=== PATIENT | female | born 1980 | race Caucasian/White ===

== ENCOUNTER 2022-07-27 10:05 | Outpatient (CLI) | payer OTHER, SELFPAY ==
--- NOTE | ~2022-07-27 | XR_ITS ---
XR knee RT min 4V DATE: 07/27/2022 11:08 INDICATION: Knee pain TECHNIQUE: 4 views COMPARISON: None FINDINGS: There is mild periarticular spurring of the patella consistent with mild patellofemoral ost eoarthritis. Knee joint spaces are well preserved. No fracture or dislocation or joint effusion, radiopaque intra-articular loose body or chondrocalcino sis. No periosteal reaction or bone destruction. IMPRESSION: Mild patellofemoral osteoarthritis Reviewed, dictated and finalized at location A.
--- NOTE | ~2022-07-27 | XR_ITS ---
XR knee LT min 4V DATE: 07/27/2022 11:08 INDICATION: Knee pain TECHNIQUE: 4 views COMPARISON: None FINDINGS: No fracture or dislocation or joint effusion. Slight periarticular spurring of the patella. Joint spaces are well preserved. No radiopaque intra-articular loose body or chondrocalcinosis. No p eriosteal reaction or bone destruction. IMPRESSION: Slight patellofemoral osteoarthritis Reviewed, dictated and finalized at location A.
[2022-07-27 10:35] LABS: Basophils Absolute Auto 0.04 K/mm3 (0.00-0.10); Basophils Percent Auto 0.8 % (0.0-1.0); Eosinophils Absolute Auto 0.12 K/mm3 (0.02-0.50); Eosinophils Percent Auto 2.5 % (1.0-6.0); Hematocrit 30.4 % (35.0-49.0); Hemoglobin 9.4 g/dL (12.0-15.0); Immature Granulocyte Absolute 0.01 K/mm3 (0.00-0.00); Immature Granulocyte Percent A 0.2 % (0.0-0.0); Lymphocytes Absolute Auto 0.81 K/mm3 (1.10-4.50); Lymphocytes Percent Auto 16.7 % (18.0-42.0); Mean Corpuscular HGB Conc 30.9 g/dL (32.0-36.0); Mean Corpuscular Hemoglobin 26.5 pg (27.0-31.0); Mean Corpuscular Volume 85.6 fL (78.0-102.0); Mean Platelet Volume 11.4 fl (9.2-11.8); Monocytes Percent Auto 6.2 % (2.0-11.0); Neutrophils Absolute Auto 3.6 K/mm3 (1.7-7.2); Neutrophils Percent Auto 73.6 % (50.0-70.0); Platelet Count Result 202 K/mm3 (150-420); Red Blood Count 3.55 M/mm3 (4.20-5.40); Red Cell Distribution Width 16.3 % (11.6-14.4); White Blood Count 4.9 K/mm3 (4.8-10.8)
[2022-07-27 10:38] LABS: Appearance Urine Clear (Clear); Bilirubin Urine Negative (Negative); Blood Urine 1+ (Negative); Color Urine Yellow (Yellow); Glucose Urine UA Negative (Negative); Ketones Urine Negative (Negative); Leukocyte Esterase Ur 3+ (Negative); Nitrate Urine Negative (Negative); Protein Urine 1+ (Negative); Urobilinogen Urine 0.2 mg/dL (0.2-1.0)
[2022-07-27 10:46] LABS: Add Urine Microscopic? YES; Bacteria Urine 1+ /hpf; Squamous Epithelial Cell Urine Few /hpf (Few); WBC Urine >75 /hpf (0-3)
[2022-07-27 10:47] LABS: Creatinine Urine 110.81 mg/dL (40-278); MALB Creatinine Ratio 41.7 mg/g (0-30); Microalbumin Urine Random 46.3 mg/L
[2022-07-27 11:22] LABS: Alanine Aminotransferase 19 U/L (14-59); Albumin Level 3.6 g/dL (3.4-5.0); Alkaline Phosphatase 81 U/L (46-116); Anion Gap 9 mmol/L (8-16); Aspartate Amino Transferase 19 U/L (15-37); Bilirubin,Total 0.4 mg/dL (0.00-1.00); Blood Urea Nitrogen 15 mg/dL (7-18); Calcium 8.8 mg/dL (8.5-10.1); Carbon Dioxide 24 mmol/L (21-32); Chloride 105 mmol/L (98-108); Estimated Glomerular Filt Rate > 60; Glucose 92 mg/dL (70-99); Osmolality Calculated 286 mOsm/kg (285-295); Potassium 4.1 mmol/L (3.5-5.1); Sodium 138 mmol/L (136-145); Thyroid Stimulating Hormone 2.28 uIU/mL (0.36-3.74); Total Protein 6.5 g/dL (6.4-8.2)
[2022-07-27 14:40] LABS: Ferritin 8 ng/mL (8-252); Iron 25 ug/dL (50-170); Percent Iron Saturation 8 % (12-57)
== END 2022-07-27 10:06 | disposition home or self-care (01) ==
LOC: CHSLAB 10:12
PROVIDERS: PCP Family Medicine; Visit Provider Family Medicine
DX: I10 Essential (primary) hypertension (principal); M25.569 Pain in unspecified knee; M17.0 Bilateral primary osteoarthritis of knee
CPT/HCPCS: 36415; 73564; 80053; 81001; 82043; 82728; 83540; 83550; 84443; 85025

== ENCOUNTER 2022-09-28 07:43 | Outpatient (CLI) | payer OTHER, SELFPAY ==
[2022-09-28 07:58] LABS: Basophils Absolute Auto 0.06 K/mm3 (0.00-0.10); Basophils Percent Auto 1.3 % (0.0-1.0); Eosinophils Absolute Auto 0.07 K/mm3 (0.02-0.50); Eosinophils Percent Auto 1.6 % (1.0-6.0); Hematocrit 29.6 % (35.0-49.0); Hemoglobin 9.7 g/dL (12.0-15.0); Immature Granulocyte Absolute 0.01 K/mm3 (0.00-0.00); Immature Granulocyte Percent A 0.2 % (0.0-0.0); Immature Reticulocyte Fraction 11.4 % (2.0-16.52); Lymphocytes Absolute Auto 0.87 K/mm3 (1.10-4.50); Lymphocytes Percent Auto 19.5 % (18.0-42.0); Mean Corpuscular HGB Conc 32.8 g/dL (32.0-36.0); Mean Corpuscular Hemoglobin 29.3 pg (27.0-31.0); Mean Corpuscular Volume 89.4 fL (78.0-102.0); Mean Platelet Volume 10.3 fl (9.2-11.8); Monocytes Absolute Auto 0.29 K/mm3 (0.10-0.90); Monocytes Percent Auto 6.5 % (2.0-11.0); Neutrophils Absolute Auto 3.2 K/mm3 (1.7-7.2); Neutrophils Percent Auto 70.9 % (50.0-70.0); Platelet Count Result 215 K/mm3 (150-420); Red Blood Count 3.31 M/mm3 (4.20-5.40); Reticulocyte Percent 1.05 % (0.50-1.50); Reticulocytes Absolute 0.03 M/mm3 (0.02-0.1); White Blood Count 4.5 K/mm3 (4.8-10.8)
[2022-09-28 09:00] LABS: Ferritin 11 ng/mL (8-252); Iron 29 ug/dL (50-170); Percent Iron Saturation 10 % (12-57)
== END 2022-09-28 07:44 | disposition home or self-care (01) ==
LOC: CHSLAB 07:44
PROVIDERS: PCP Family Medicine; Visit Provider Family Medicine
DX: E61.1 Iron deficiency (principal)
CPT/HCPCS: 36415; 82728; 83540; 83550; 85025; 85046

== ENCOUNTER 2022-10-29 08:49 | Outpatient (CLI) | payer OTHER, SELFPAY ==
--- NOTE | ~2022-10-29 | CT_ITS ---
EXAMINATION: CT sinus wo con DATE: 10/29/2022 09:14 INDICATION: Chronic sinusitis TECHNIQUE: Computed tomography (CT) of the paranasal sinuses was performed without intravenous contra st. The dose-length product was 313.83 mGy-cm. Automated exposure control and iterative reconstructio n technique were employed. COMPARISON: None FINDINGS: There is mild mucosal thickening of the maxillary sinuses. No air-fluid levels. No signific ant mucoperiosteal reaction. Rightward nasal septal deviation. Ostiomeatal units are patent. Mastoids are pneumatized. IMPRESSION: 1. Mild maxillary sinus disease. Reviewed, dictated and finalized at location L.
== END 2022-10-29 08:50 | disposition home or self-care (01) ==
LOC: CHSIMG 08:51
PROVIDERS: PCP Family Medicine; Visit Provider Family Medicine
DX: J32.0 Chronic maxillary sinusitis (principal)
CPT/HCPCS: 70486

== ENCOUNTER 2023-01-18 10:15 | Outpatient (CLI) | payer OTHER, SELFPAY ==
--- NOTE | ~2023-01-18 | XR_ITS ---
XR knee RT 3V 01/18/2023 11:05 Indication: Right knee pain Procedure: 4 views right knee Comparison: 07/27/2022 Findings: There is mild osteoarthritis of the right knee. No fracture or traumatic malalignment. No s ignificant joint effusion. No foreign bodies. Impression: 1: Mild osteoarthritis of the right knee. Reviewed, dictated and finalized at location B. [employer] Impression: 1: Mild osteoarthritis of the right knee.
--- NOTE | ~2023-01-18 | XR_ITS ---
Right Shoulder Technique: AP and scapular Y views were obtained. Clinical History: Pain Findings: No fracture or dislocation is seen. Osseous alignment is anatomic. The glenohumeral and acr omioclavicular joint spaces are preserved. Soft tissues are unremarkable. Impression: Unremarkable right shoulder radiographs. Reviewed, dictated and finalized at [facility]. [employer] SERVICES REPRESENTATIVE Impression: Unremarkable right shoulder radiographs.
--- NOTE | ~2023-01-18 | XR_ITS ---
CORRECTED REPORT [facility] order corrected [facility] [place] 01/20/23 This report was recreated on 01/20/23. Original report was SETTER Cervical Spine: AP, lateral, open-mouth views Clinical History: Pain Findings: The normal lordotic curve is maintained. No fracture seen. There is minimal grade 1 retrolisthesis of C3 over C4. Mild degenerative change at C5-C6 and C6-C7. Pre-vertebral soft tissues are unremarkable. Impression: Minimal grade 1 retrolisthesis of C3 over C4. Mild degenerative disc change at C5-C6 and C6-C7. Reviewed, dictated and finalized at location . SETTER MTDD Impression: Minimal grade 1 retrolisthesis of C3 over C4. Mild degenerative disc change at C5-C6 and C6-C7.
--- NOTE | ~2023-01-18 | XR_ITS ---
Lumbosacral Spine: AP and lateral views Clinical History: Pain Findings: There is mild reversal normal lumbar lordosis. No fracture or subluxation evident. There is mild degenerative change throughout the lumbar spine. Extremely large amount of stool is present dis tending the sigmoid colon and rectum. Impression: Mild degenerative spondylosis. Extremely large amount of stool distending the sigmoid colon and rectum. Correlate for chronic fecal impaction/constipation. Reviewed, dictated and finalized at location M. IC HOUSING MANAGER Impression: Mild degenerative spondylosis. Extremely large amount of stool distending the sigmoid colon and rectum. Correl ate for chronic fecal impaction/constipation.
== END 2023-01-18 10:16 | disposition home or self-care (01) ==
PROVIDERS: PCP Family Medicine; Visit Provider Family Medicine
DX: M25.561 Pain in right knee (principal); M25.511 Pain in right shoulder; M54.2 Cervicalgia; M43.06 Spondylolysis, lumbar region; M43.12 Spondylolisthesis, cervical region; M17.11 Unilateral primary osteoarthritis, right knee
CPT/HCPCS: 72040; 72050; 72100; 73030; 73562

== ENCOUNTER 2023-01-27 10:10 | Emergency (ER) | payer OTHER, SELFPAY ==
[2023-01-27 10:15] VITALS: BP 121/92; PULSE 96; RESP 18; TEMP 37.3; O2SAT 99
--- NOTE | 2023-01-27 10:18 | ED.NAVMDI ---
HPI - Nausea/Vomiting/Diarrhea General Chief complaint: Nausea/Vomiting/Diarrhea Stated complaint: nausea/vomiting Time Seen by Provider: 01/27/23 10:18 Source: patient Mode of arrival: ambulatory Limitations: no limitations History of Present Illness HPI Narrative: 42-year-old female with a history of bipolar, personality disorder, PTSD presents to the ER an 8 hour history of -- nausea with multiple episodes of vomiting. No hematemesis. -- Diffuse abdominal pain. Pain is cramping. No radiation of the pain. -- Multiple episodes of diarrhea. No melena or hematochezia noted. No fever or chills. No one else is sick at home. Patient did not eat anything out of the ordinary in the last 2 days. MD elicited complaint: nausea, vomiting, diarrhea and abdominal pain Onset (ago): hour(s) ( 8 hours ago) Description of vomiting: watery Description of diarrhea: watery Associated nausea: Yes Associated abdominal pain: Yes Location of pain: diffuse Quality: cramping Exacerbating factors: none Relieving factors: none Associated symptoms: nausea/vomiting, weakness and anxiety Related Data Home Medications Medication Instructions Recorded Confirmed alprazolam 0.25 mg tablet 0.25 mg PO BID 01/27/23 01/27/23 ascorbic acid (vitamin C) 250 mg 250 mg PO DAILY 01/27/23 01/27/23 chewable tablet clotrimazole 1 % topical cream 1 applic topical DAILY 01/27/23 01/27/23 ferrous sulfate 325 mg (65 mg 325 mg PO DAILY 01/27/23 01/27/23 iron) tablet,delayed release lamotrigine 100 mg tablet 100 mg PO BID 01/27/23 01/27/23 lidocaine 5 % topical patch 1 patch topical DAILY 01/27/23 01/27/23 lisinopril 20 mg tablet 20 mg PO DAILY 01/27/23 01/27/23 omeprazole 20 mg capsule,delayed 20 mg PO DAILY 01/27/23 01/27/23 release polysaccharide iron complex 150 mg 150 mg PO DAILY 01/27/23 01/27/23 iron capsule (iFerex 150) trazodone 50 mg tablet 75 mg PO HS 01/27/23 01/27/23 Allergies Allergy/AdvReac Type Severity Reaction Status Date / Time No Known Allergies Allergy Verified 01/27/23 10:28 Review of Systems Review of Systems: All systems reviewed & are unremarkable except as noted in HPI and below Constitutional: Constitutional: Reports as per HPI, Reports no additional constitutional complaints and Reports weakness Eyes: Eyes: Reports as per HPI and Reports no additional eye complaints ENT: Reports system reviewed and no additional complaints, except as documented and Reports as per HPI Cardiovascular: Cardiovascular: Reports as per HPI and Reports no additional cardiovascular complaints Respiratory: Respiratory: Reports as per HPI and Reports no additional respiratory complaints Gastrointestinal: Gastrointestinal: Reports as per HPI, Reports no additional gastrointestinal complaints, Reports diarrhea, Reports nausea and Reports vomiting Genitourinary: Genitourinary: Reports no additional female genitourinary complaints and Reports as per HPI Musculoskeletal: Musculoskeletal: Reports no additional musculoskeletal complaints and Reports as per HPI Integumentary/Breasts: Skin/Breast: Reports system reviewed and no additional complaints, except as docu and Reports as per HPI Neurologic: Reports system reviewed and no additional complaints, except as documented and Reports as per HPI Psychiatric: Psychiatric: Reports no additional psychiatric complaints and Reports as per HPI Endocrine: Endocrine: Reports no additional endocrine complaints and Reports as per HPI Hematologic/Lymphatic: Hematologic/Lymphatic: Reports no additional hematologic/lymphatic complaints and Reports as per HPI Allergic/Immunologic: Allergic/Immunologic: Reports no additional allergic/immunologic complaints and Reports as per HPI [facility] Past Medical History Medical History (Updated 01/27/23 @ 12:44 by Thierry Giordano MD) Bipolar 1 disorder Personality disorder PTSD (post-traumatic stress disorder) Exam Const: General: cooperative and healthy
[2023-01-27] MEDS: LACTATED RINGERS 1,000 ML 999 ML IV CONT ×2 (10:29→11:21)
[2023-01-27 10:49] LABS: Basophils Absolute Auto 0.02 K/mm3 (0.00-0.10); Basophils Percent Auto 0.3 % (0.0-1.0); Eosinophils Absolute Auto 0.01 K/mm3 (0.02-0.50); Eosinophils Percent Auto 0.1 % (1.0-6.0); Hematocrit 30.8 % (35.0-49.0); Hemoglobin 10.3 g/dL (12.0-15.0); Immature Granulocyte Absolute 0.03 K/mm3 (0.00-0.00); Immature Granulocyte Percent A 0.4 % (0.0-0.0); Lymphocytes Absolute Auto 0.19 K/mm3 (1.10-4.50); Lymphocytes Percent Auto 2.8 % (18.0-42.0); Mean Corpuscular HGB Conc 33.4 g/dL (32.0-36.0); Mean Corpuscular Hemoglobin 29.7 pg (27.0-31.0); Mean Corpuscular Volume 88.8 fL (78.0-102.0); Mean Platelet Volume 10.8 fl (9.2-11.8); Monocytes Absolute Auto 0.34 K/mm3 (0.10-0.90); Neutrophils Absolute Auto 6.2 K/mm3 (1.7-7.2); Neutrophils Percent Auto 91.4 % (50.0-70.0); Platelet Count Result 161 K/mm3 (150-420); Red Blood Count 3.47 M/mm3 (4.20-5.40); Red Cell Distribution Width 13.6 % (11.6-14.4); White Blood Count 6.8 K/mm3 (4.8-10.8)
[2023-01-27 11:06] LABS: Influenza A QL RT-PCR Negative (Negative); Influenza B QL RT-PCR Negative (Negative); RSV RNA, RT-PCR Negative (Negative); SARS-CoV-2 RNA PCR Negative (Negative)
[2023-01-27 11:09] LABS: Lactic Acid Reflex 1.4 mmol/L (0.4-2.0)
[2023-01-27 11:11] LABS: Partial Thromboplastin Time 23.4 SEC (23.90-30.70)
[2023-01-27 11:16] LABS: Alanine Aminotransferase 14 U/L (14-59); Albumin Level 3.6 g/dL (3.4-5.0); Alkaline Phosphatase 65 U/L (46-116); Anion Gap 6 mmol/L (8-16); Aspartate Amino Transferase < 10 U/L (15-37); Bilirubin,Total 0.8 mg/dL (0.00-1.00); Blood Urea Nitrogen 14 mg/dL (7-18); Calcium 8.9 mg/dL (8.5-10.1); Carbon Dioxide 28 mmol/L (21-32); Chloride 101 mmol/L (98-108); Estimated CRCL calculation 83 ml/min; Estimated Glomerular Filt Rate > 60; Glucose 100 mg/dL (70-99); Lipase 19 U/L (16-77); Osmolality Calculated 280 mOsm/kg (285-295); Potassium 3.2 mmol/L (3.5-5.1); Sodium 135 mmol/L (136-145); Total Protein 6.4 g/dL (6.4-8.2)
[2023-01-27] MEDS: ONDANSETRON INJ 4 MG/2 ML VIAL IV PUSH (11:21)
[2023-01-27 11:47] LABS: Appearance Urine Slightly Cloudy (Clear); Bilirubin Urine Negative (Negative); Blood Urine Negative (Negative); Color Urine Light Yellow (Yellow); Glucose Urine UA Negative (Negative); Ketones Urine 2+ (Negative); Leukocyte Esterase Ur 3+ LEU/UL (Negative); Nitrate Urine Negative (Negative); Protein Urine 1+ (Negative); pH Urine 8.5 (5.0-8.0)
[2023-01-27 11:53] LABS: Add Urine Microscopic? YES; Bacteria Urine 1+ /hpf; RBC Urine None seen /hpf (0-2); Squamous Epithelial Cell Urine Few /hpf (Few); WBC Urine 16-20 /hpf (0-3)
[2023-01-27 13:05] VITALS: BP 118/99; PULSE 86; RESP 18; TEMP 37.7; O2SAT 98
--- NOTE | 2023-01-29 13:12 | PC.NURSE ---
Final urine culture report, dirty collection, no further action or treatment needed per ERP Dr. Hernandez
== END 2023-01-27 13:17 | disposition home or self-care (01) ==
PROVIDERS: Emergency Provider Internal Medicine Critical Care Medicine; PCP Family Medicine
DX: K52.9 Noninfective gastroenteritis and colitis, unspecified (principal); E86.0 Dehydration; Z79.899 Other long term (current) drug therapy; Z20.822 Contact with and (suspected) exposure to COVID-19
CPT/HCPCS: 36415; 80053; 81001; 83605; 83690; 84484; 85025; 85730; 87077; 87086; 87088; 87637; 96361; 96374; 99284; J2405; J7120

== ENCOUNTER 2023-02-01 13:00 | Outpatient (RCR) | payer OTHER, SELFPAY ==
--- NOTE | 2023-02-02 07:58 | OPREHPOC ---
Outpatient Therapy Plan of Care This is a Multidisciplinary Plan of Care that may contain components documented by all disciplines (PT, OT, and ST.) PT Problem 1 PT Problem #1 Knowledge Deficit PT Goal 1 Goal Patient to demonstrate independence with HEP Target Visit 6 PT Problem 2 PT Problem #2 Pain PT Goal 1 Goal Patient to report highest pain at 4/10 Target Visit 12 PT Problem 3 PT Problem #3 Impaired Strength PT Goal 1 Goal Patient to demonstrate 5/5 B LE strength to return to stair navigation at PLOF1 Target Visit 12 PT Problem 4 PT Problem #4 Impaired Functional Mobil PT Goal 1 Goal 1. Patient to report ability to get out of bed with no increase in pain 2. Patient to demonstrate B HS length to 20 deg to improve ability to ambulate prolonged distances 3. Patient to demonstrate 5 sit to stand transfers with no report of back or R LE pain Target Visit 12
--- NOTE | 2023-02-02 07:59 | PTOPEVAL1 ---
Assessment and note entered by Mehreen Walters DPT Evaluation Information Assessment Status Evaluation Diagnosis right knee, right shoulder, back, neck pain Onset 01/22/23 Subjective Information Patient reports she has had right knee, right shoulder, back and neck pain. She reports that R knee and back pain are her biggest concern due to impairing her balance. She reports she has had back and knee pain since 2001 with worseing over the last year. Alexandro eports pain shoots down the thigh to the ankle. She reports difficulty with walking, getting up out of bed, stair navigation and getting up out of a chair, She reports she has had negative x-ray. She does not currently have an appointment with the MD. Initial appointments with focus on back and knee pain Reported Pain Level Pain Score 5,6: Self Report Assessment PT Clinical Summary Ms. Hunter is a 42 year old female who presents to PT with back, R knee, R shoulder and neck pain with biggest complaint of back and R knee pain. Patient demonstrates decreased R LE strength, decreased lumbar mobility and decreased LE flexibility impairing her ability to get out of bed, ambulate, navigate stairs and stand up from a chair. She will be re-evaluated for neck and R shoulder pain upon improvement of back and knee pain. She will benefit from skilled PT to address impairments and return to PLOF. Plan of Care Interventions Electrical Stimulation,Gait Training,Hot Pack/Cold Pack,Manual Therapy,Mechanical Traction,Neuro Re- education,Patient/Caregiver Educati,Therapeutic Activities,Therapeutic Exercise PT Services Indicated Yes Treatment Frequency and 3x weekly for 12 visits Duration These treatments will address the objective and functional deficits as defined above. The patient will be advanced safely and appropriately in order for the patient to progress towards his/her prior level of function. Additional exercises will be introduced and as well as a comprehensive home exercise program upon discharge, if needed, ?to ensure carryover of functional gains achieved in the clinic. This treatment plan has been reviewed and agreement upon by the patient.
--- NOTE | 2023-02-12 14:12 | OPREHPOC ---
Outpatient Therapy Plan of Care This is a Multidisciplinary Plan of Care that may contain components documented by all disciplines (PT, OT, and ST.) PT Problem 1 PT Problem #1 Knowledge Deficit PT Goal 1 Goal Patient to demonstrate independence with HEP Target Visit 6 Progress Partially Met PT Problem 2 PT Problem #2 Pain PT Goal 1 Goal Patient to report highest pain at 4/10 in the knee , shoulder, back, and neck Target Visit 12 PT Problem 3 PT Problem #3 Impaired Strength PT Goal 1 Goal Patient to demonstrate 5/5 B LE strength to return to stair navigation at PLOF1 5/5 bilateral shoulder strength Target Visit 12 PT Problem 4 PT Problem #4 Impaired Functional Mobil PT Goal 1 Goal 1. Patient to report ability to get out of bed with no increase in pain 2. Patient to demonstrate B HS length to 20 deg to improve ability to ambulate prolonged distances 3. Patient to demonstrate 5 sit to stand transfers with no report of back or R LE pain 4. patient to return to walking to [facility] to improve quality of life Target Visit 12 PT Problem 5 PT Problem #5 Impaired Range of Motion PT Goal 1 Goal improve R cervical rotation to 80 degrees improve R shoulder flexion to 175 degrees no pain in the neck with cervical active rom Target Visit 8
--- NOTE | 2023-02-12 14:13 | PTOPPROG ---
Assessment and note entered by JT File, PT Evaluation Information Assessment Status Progress Diagnosis right knee, right shoulder, back, neck pain Onset 01/22/23 Subjective Information patient reports she would like to begin therapy for the R shoulder. she reports she still has pain in the back and the R knee. however, she reports she is most limited due to her pain in the R shoulder. she reports she has increased pain in the R shoulder with sleeping on the R shoulder and with arms overhead. she reports she also has increased R shoulder pain with carrying her bag. she reports she carries her bag on the R side most frequently. Assessment PT Clinical Summary mrs. mcgrath presents to skilled PT services for her 5th skilled therapy visit. her therapy thus far has been focusd on the lower back and the R knee. however, she reports the R shoulder has been causing her more issues as well, and would like to begin therapy on the R shoulder. assessed R shoulder and neck for rom, strength, and functional deficits today. she presents with signs and symptoms of an acute flare up of RTC tendonitis/impingement of the R shoulder, and a facet hypertrophy in the R side of the neck. she would benefit from the addition of neck and R shoulder rehab to her back and R knee rehab to improve her quality of life and functional activity performance. Plan of Care Interventions Electrical Stimulation,Gait Training,Hot Pack/Cold Pack,Manual Therapy,Mechanical Traction,Neuro Re- education,Patient/Caregiver Educati,Therapeutic Activities,Therapeutic Exercise PT Services Indicated Yes Treatment Frequency and continue skilled PT 3x weekly for 3 more visits Duration per initial authorized amount with the addition of R shoulder and neck rehab. These treatments will address the objective and functional deficits as defined above. The patient will be advanced safely and appropriately in order for the patient to progress towards his/her prior level of function. Additional exercises will be introduced and as well as a comprehensive home exercise program upon discharge, if needed, ?to ensure carryover of functional gains achieved in the clinic. This treatment plan has been reviewed and agreement upon by the patient.
--- NOTE | 2023-02-23 09:32 | PCPTNOTE ---
patient has called and cancelled her therapy visit for today. she reports she has a conflicting doctors appointment, and also is still sore from therapy this past wednesday.
--- NOTE | 2023-02-26 14:35 | OPREHPOC ---
Outpatient Therapy Plan of Care This is a Multidisciplinary Plan of Care that may contain components documented by all disciplines (PT, OT, and ST.) PT Problem 1 PT Problem #1 Knowledge Deficit PT Goal 1 Goal Patient to demonstrate independence with HEP Target Visit 10 Progress Partially Met Comment continue PT Problem 2 PT Problem #2 Pain PT Goal 1 Goal Patient to report highest pain at 4/10 in the knee , shoulder, back, and neck Target Visit 14 Comment continue PT Problem 3 PT Problem #3 Impaired Strength PT Goal 1 Goal Patient to demonstrate 5/5 B LE strength to return to stair navigation at PLOF1 5/5 bilateral shoulder strength Target Visit 14 Comment continue PT Problem 4 PT Problem #4 Impaired Functional Mobil PT Goal 1 Goal 1. Patient to report ability to get out of bed with no increase in pain 2. Patient to demonstrate B HS length to 20 deg to improve ability to ambulate prolonged distances 3. Patient to demonstrate 5 sit to stand transfers with no report of back or R LE pain 4. patient to return to walking to [facility] from [facility] to improve quality of life Target Visit 14 Comment has walked to [facility] with walker PT Problem 5 PT Problem #5 Impaired Range of Motion PT Goal 1 Goal improve R cervical rotation to 80 degrees improve R shoulder flexion to 175 degrees no pain in the neck with cervical active rom Target Visit 14 Comment shoulder flexion met
--- NOTE | 2023-02-26 14:35 | PTOPREEVAL ---
Assessment and note entered by Mehreen Walters DPT Evaluation Information Assessment Status Re-evaluation Diagnosis right knee, right shoulder, back, neck pain Onset 01/22/23 Subjective Information Patient comes to PT with FWW. She thinks that her balance has improved however. Patient reports that she continues to have difficulty with getting out of bed and out of a chair. She reports she has less R shoulder pain when sleeping. She believes she pushed herself too much last week at PT and has pain and difficulty since Reported Pain Level Pain Score 5,5,4: Self Report Assessment PT Clinical Summary mrs. mcgrath presents to skilled PT services for her 8th skilled PT treatment. She has demonstrates improved R shoulder flexion, improved ability to get up from chair and reports improved balance. She reports continued difficulty with ambulating prolonged distances, sleeping and getting up from a chair. She would benefit from continued skilled PT to address remaining impairments and return to PLOF. Plan of Care Interventions Electrical Stimulation,Gait Training,Hot Pack/Cold Pack,Manual Therapy,Mechanical Traction,Neuro Re- education,Patient/Caregiver Educati,Therapeutic Activities,Therapeutic Exercise PT Services Indicated Yes Treatment Frequency and continue skilled PT 2x weekly for 6 visits Duration These treatments will address the objective and functional deficits as defined above. The patient will be advanced safely and appropriately in order for the patient to progress towards his/her prior level of function. Additional exercises will be introduced and as well as a comprehensive home exercise program upon discharge, if needed, ?to ensure carryover of functional gains achieved in the clinic. This treatment plan has been reviewed and agreement upon by the patient.
== END 2023-02-26 17:08 | disposition home or self-care (01) ==
LOC: CHSPT 13:00
PROVIDERS: PCP Family Medicine; Visit Provider Family Medicine
DX: M25.511 Pain in right shoulder (principal); M54.2 Cervicalgia; M54.9 Dorsalgia, unspecified; M25.561 Pain in right knee
CPT/HCPCS: 97014; 97110; 97161; G0283

== ENCOUNTER 2023-02-01 13:00 | Outpatient (CLI) | payer OTHER, SELFPAY | END 2023-02-01 13:01 | disposition home or self-care (01) | LOC: CHSLAB 13:01 | PROVIDERS: PCP Family Medicine; Visit Provider Family Medicine | DX: R82.90 Unspecified abnormal findings in urine (principal) | CPT/HCPCS: 87086; 87088 ==

== ENCOUNTER 2023-05-31 10:14 | Outpatient (CLI) | payer OTHER, SELFPAY ==
--- NOTE | ~2023-05-31 | XR_ITS ---
EXAMINATION: XR lumbar spine 2-3V DATE: 05/31/2023 11:16 INDICATION: Generalized back pain. TECHNIQUE: 3 views of lumbar spine were obtained. COMPARISON: Lumbar spine radiographs 01/18/2023 FINDINGS: There is 5 degrees levocurvature of lumbar spine. There is 3 mm retrolisthesis of L3 on L4. Vertebral body heights are normal. There is mildly decreased disc height at L2-L3 and L3-L4. There i s multilevel facet joint osteoarthritis, severe in the upper lumbar spine. There is a large volume of stool in the colon with distention of the rectosigmoid. Surgical clips in the right upper quadrant a re likely from cholecystectomy. IMPRESSION: 1. Mild lumbar spondylosis. 2. Large volume of stool in the colon with distention of the rectosigmoid. Reviewed, dictated and finalized at location E.
--- NOTE | ~2023-05-31 | XR_ITS ---
EXAMINATION: XR thoracic spine 3V DATE: 05/31/2023 11:16 INDICATION: Generalized back pain. Fall. TECHNIQUE: 3 views of thoracic spine on 4 radiographs were obtained. COMPARISON: None. FINDINGS: There is 11 degrees dextroscoliosis of thoracic spine. Vertebral body heights are normal. T here are endplate osteophytes at all levels. There is mildly decreased disc height at T10-T11. There is multilevel facet joint osteoarthritis, severe at multiple levels in lower thoracic spine. IMPRESSION: 1. Mild thoracic spondylosis. 2. Thoracic dextroscoliosis. Reviewed, dictated and finalized at location E.
[2023-05-31 10:51] LABS: Basophils Absolute Auto 0.03 K/mm3 (0.00-0.10); Basophils Percent Auto 0.5 % (0.0-1.0); Eosinophils Absolute Auto 0.02 K/mm3 (0.02-0.50); Eosinophils Percent Auto 0.4 % (1.0-6.0); Hematocrit 31.5 % (35.0-49.0); Hemoglobin 10.7 g/dL (12.0-15.0); Immature Granulocyte Absolute 0.01 K/mm3 (0.00-0.00); Immature Granulocyte Percent A 0.2 % (0.0-0.0); Immature Reticulocyte Fraction 5.8 % (2.0-16.52); Lymphocytes Absolute Auto 0.95 K/mm3 (1.10-4.50); Lymphocytes Percent Auto 17.1 % (18.0-42.0); Mean Corpuscular Hemoglobin 31.2 pg (27.0-31.0); Mean Corpuscular Volume 91.8 fL (78.0-102.0); Mean Platelet Volume 10.7 fl (9.2-11.8); Monocytes Absolute Auto 0.31 K/mm3 (0.10-0.90); Monocytes Percent Auto 5.6 % (2.0-11.0); Neutrophils Absolute Auto 4.24 K/mm3 (1.70-7.20); Neutrophils Percent Auto 76.2 % (50.0-70.0); Platelet Count Result 198 K/mm3 (150-420); Red Blood Count 3.43 M/mm3 (4.20-5.40); Red Cell Distribution Width 11.9 % (11.6-14.4); Reticulocyte Hemoglobin Conten 34.7 pg (28.0-35.0); Reticulocyte Percent 1.03 % (0.50-1.50); Reticulocytes Absolute 0.04 M/mm3 (0.02-0.10); White Blood Count 5.6 K/mm3 (4.8-10.8)
[2023-05-31 11:47] LABS: Anion Gap 6 mmol/L (4-12); Blood Urea Nitrogen 11 mg/dL (7-18); Calcium 8.9 mg/dL (8.5-10.1); Carbon Dioxide 29 mmol/L (21-32); Chloride 104 mmol/L (98-108); Estimated Glomerular Filt Rate > 60; Ferritin 14 ng/mL (8-252); Glucose 86 mg/dL (70-99); Iron 60 ug/dL (50-170); Osmolality Calculated 286 mOsm/kg (285-295); Percent Iron Saturation 25 % (12-57); Sodium 139 mmol/L (136-145)
== END 2023-05-31 10:15 | disposition home or self-care (01) ==
LOC: CHSIMG 10:15
PROVIDERS: PCP Family Medicine; Visit Provider Family Medicine
DX: I10 Essential (primary) hypertension (principal); E61.1 Iron deficiency; M54.9 Dorsalgia, unspecified; M43.04 Spondylolysis, thoracic region; M41.84 Other forms of scoliosis, thoracic region; M43.06 Spondylolysis, lumbar region
CPT/HCPCS: 36415; 72072; 72100; 80048; 82728; 83540; 83550; 85025; 85046

== ENCOUNTER 2023-06-08 08:46 | Outpatient (RCR) | payer OTHER, SELFPAY ==
--- NOTE | 2023-06-08 10:12 | OPREHPOC ---
Outpatient Therapy Plan of Care This is a Multidisciplinary Plan of Care that may contain components documented by all disciplines (PT, OT, and ST.) PT Problem 1 PT Problem #1 Knowledge Deficit PT Goal 1 Goal The patient will be independent in a home exercise program. Target Visit 10 PT Problem 2 PT Problem #2 Pain PT Goal 1 Goal The patient will report no greater than 4/10 low back pain with daily activities. Target Visit 10 PT Problem 3 PT Problem #3 Impaired Range of Motion PT Goal 1 Goal The patient will improve lumbar flexion AROM to at least 30 degrees to improve ability to don socks and shoes. Target Visit 10 PT Problem 4 PT Problem #4 Impaired Strength PT Goal 1 Goal Patient will demonstrate improved abdominal and lumbar extension strength to 4-/5 to provide support to the spine for lifting. Target Visit 10 PT Problem 5 PT Problem #5 Impaired Functional Mobil PT Goal 1 Goal 1. The patient will demonstrate 30% or less self perceived disability per the Oswestry Back Index. 2. The patient will improve Tinetti Balance score to 24 or higher indicating a low fall risk. Target Visit 10
--- NOTE | 2023-06-08 10:12 | PTOPEVAL1 ---
Assessment and note entered by Yesy Manzano, PT Evaluation Information Diagnosis Dorsalgia Onset 06/03/23 Subjective Information Makayla Hunter reports she started having mid to lower back pain over the last 1-2 weeks. She is noting pain that shoots from the spine out to both sides. 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 She went to her primary care doctor and had a x-ray that showed thoracic and lumbar spondylosis as well as dextroscoliosis. She has increased pain with bending at the waist, lifting, and with standing up after prolonged sitting. She tries to change positions to help with pain. Reported Pain Level Pain Score 4: Self Report Assessment PT Clinical Summary Makayla Hunter presents with thoracic and lumbar back pain that started in early May 2023 for unknown reasons. She has had x-rays that showed thoracic and lumbar spondylosis as well as thoracic dextroscoliosis. She notes difficulty bending at the waist, lifting, and standing up after prolonged sitting. 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 She objectively demonstrates decreased and painful lumbar AROM, decreased core and hip strength, altered gait, and decreased balance. The Tinetti Balance score indicates she is a moderate fall risk. She will benefit from skilled PT to address these limitations and improve her functional abilities. Plan of Care Interventions Electrical Stimulation,Hot Pack/Cold Pack,Manual Therapy,Neuro Re-education,Patient/Caregiver Educati,Therapeutic Activities,Therapeutic Exercise PT Services Indicated Yes Treatment Frequency and 2 times a week for 10 visits Duration These treatments will address the objective and functional deficits as defined above. The patient will be advanced safely and appropriately in order for the patient to progress towards his/her prior level of function. Additional exercises will be introduced and as well as a comprehensive home exercise program upon discharge, if needed, ?to ensure carryover of functional gains achieved in the clinic. This treatment plan has been reviewed and agreement upon by the patient.
--- NOTE | 2023-07-14 09:57 | OPREHPOC ---
Outpatient Therapy Plan of Care This is a Multidisciplinary Plan of Care that may contain components documented by all disciplines (PT, OT, and ST.) PT Problem 1 PT Problem #1 Knowledge Deficit PT Goal 1 Goal The patient will be independent in a home exercise program. Target Visit 10 Progress Met PT Problem 2 PT Problem #2 Pain PT Goal 1 Goal The patient will report no greater than 4/10 low back pain with daily activities. Target Visit 10 Progress Not Met PT Problem 3 PT Problem #3 Impaired Range of Motion PT Goal 1 Goal The patient will improve lumbar flexion AROM to at least 30 degrees to improve ability to don socks and shoes. Target Visit 10 Progress Not Met Comment progress towards-25 degrees PT Problem 4 PT Problem #4 Impaired Strength PT Goal 1 Goal Patient will demonstrate improved abdominal and lumbar extension strength to 4-/5 to provide support to the spine for lifting. Target Visit 10 Progress Not Met Comment progress towards PT Problem 5 PT Problem #5 Impaired Functional Mobil PT Goal 1 Goal 1. The patient will demonstrate 30% or less self perceived disability per the Oswestry Back Index. -not met 2. The patient will improve Tinetti Balance score to 24 or higher indicating a low fall risk. -met Target Visit 10 Progress Partially Met
--- NOTE | 2023-07-14 09:57 | PTOPDC ---
Assessment and note entered by Yesy Manzano, PT Evaluation Information Assessment Status Discharge Diagnosis Dorsalgia Onset 06/03/23 Subjective Information Makayla Hunter reports her back and shoulder are about the same. She was still wiping tables and taking out trash until she developed laryngitis and had to take a break from helping in the dining yusuf. She is noting her back still hurts all the time and is worse when she bends over. She c/o tightness and soreness in her leg muscles. She also feels she is off balanced and walks like a penguin. Reported Pain Level Pain Score 7,9: Self Report Assessment PT Clinical Summary Makayla Hunter has completed 10 skilled PT visits for low back pain. She is reporting no overall change in symptoms and she still has pain when she bends forward. She objectively demonstrates improved lumbar AROM, improved balance, and improved core strength. Despite these improvements , she only met 2 out of 6 goals. She was instructed to follow up with her physician regarding ongoing pain. She was discharged to an independent home exercise program and a new printout of exercises was given. Plan of Care PT Services Indicated No
== END 2023-07-14 10:13 | disposition home or self-care (01) ==
LOC: CHSPT 08:46
PROVIDERS: Visit Provider Family Medicine
DX: M54.9 Dorsalgia, unspecified (principal)
CPT/HCPCS: 97014; 97110; 97150; 97161; 97750; G0283

== ENCOUNTER 2023-07-22 11:02 | Outpatient (CLI) | payer OTHER, SELFPAY ==
--- NOTE | ~2023-07-22 | XR_ITS ---
AP view of the pelvis and AP and lateral views of the left hip Clinical history: Pain Findings: No acute fracture or dislocation is seen. Osseous alignment is anatomic. Bilateral hip and SI joint spaces are preserved. Soft tissues are unremarkable. Impression: No significant abnormality is seen. Reviewed, dictated and finalized at [facility]. Impression: No significant abnormality is seen.
[2023-07-22 11:23] LABS: Basophils Absolute Auto 0.04 K/mm3 (0.00-0.10); Eosinophils Absolute Auto 0.09 K/mm3 (0.02-0.50); Eosinophils Percent Auto 2.3 % (1.0-6.0); Hematocrit 31.2 % (35.0-49.0); Hemoglobin 10.4 g/dL (12.0-15.0); Immature Granulocyte Absolute 0.01 K/mm3 (0.00-0.00); Immature Granulocyte Percent A 0.3 % (0.0-0.0); Immature Reticulocyte Fraction 10.1 % (2.0-16.52); Lymphocytes Absolute Auto 1.08 K/mm3 (1.10-4.50); Lymphocytes Percent Auto 27.2 % (18.0-42.0); Mean Corpuscular HGB Conc 33.3 g/dL (32-36); Mean Corpuscular Hemoglobin 31.5 pg (27.0-31.0); Mean Corpuscular Volume 94.5 fL (78.0-102.0); Mean Platelet Volume 10.4 fl (9.2-11.8); Monocytes Absolute Auto 0.29 K/mm3 (0.10-0.90); Monocytes Percent Auto 7.3 % (2.0-11.0); Neutrophils Absolute Auto 2.46 K/mm3 (1.70-7.20); Neutrophils Percent Auto 61.9 % (50.0-70.0); Platelet Count Result 188 K/mm3 (150-420); Red Cell Distribution Width 11.7 % (11.6-14.4); Reticulocyte Hemoglobin Conten 32.1 pg (28.0-35.0); Reticulocyte Percent 1.02 % (0.50-1.50); Reticulocytes Absolute 0.03 M/mm3 (0.02-0.10)
[2023-07-22 12:26] LABS: Ferritin 10 ng/mL (8-252); Folic Acid 8.3 ng/mL (8.6->20); Iron 34 ug/dL (50-170); Percent Iron Saturation 13 % (12-57); Vitamin B12 857 pg/mL (193-986)
[2023-07-27 09:39] LABS: Methylmalonic Acid 228 nmol/L (87-318)
== END 2023-07-22 11:03 | disposition home or self-care (01) ==
LOC: CHSLAB 11:05
PROVIDERS: PCP Family Medicine; Visit Provider Family Medicine
DX: M25.552 Pain in left hip (principal); D64.9 Anemia, unspecified; R79.9 Abnormal finding of blood chemistry, unspecified
CPT/HCPCS: 36415; 73502; 82607; 82728; 82746; 83540; 83550; 83921; 85025; 85046

== ENCOUNTER 2023-07-24 06:59 | Outpatient (CLI) | payer OTHER, SELFPAY ==
--- NOTE | ~2023-07-24 | MR_ITS ---
Procedure: MR thoracic spine wo con Ordering provider: Rojas Smiley MD History: . Dorsalgia/Back pain since 2001- Fell at work . Comparison: None. Technique: MRI thoracic spine without contrast. FINDINGS: SPINAL CORD: Normal. VERTEBRAL BODIES: Normal height and alignment. No compression fracture. Normal marrow signal. DISK SPACES: Disc bulge at the level of T12-L1 with narrowing of the disc space.. The [employer] safety program coordinator film shows disc protrusion at the level of L2-L3 with spinal canal stenosis. Disc bulge als o seen at the level of L1-L2. STENOSIS: None. PARASPINOUS SOFT TISSUES: Normal. IMPRESSION: No compression fracture or stenosis of the thoracic spine. Disc protrusion at the level of L2-L3. Disc bulge at the level of L1-L2 and T12-L1. Reviewed, dictated and finalized at location A.
--- NOTE | ~2023-07-24 | MR_ITS ---
MRI of the lumbar spine Clinical History: Back pain Technique: Axial T2-weighted images, and sagittal T1-weighted, T2-weighted, and T2 fat-sat images wer e acquired. Findings: There is minimal grade 1 anterolisthesis of L2 over L3. No acute fracture seen. No suspicio us bone marrow signal abnormality seen. At L1-L2, there is mild central disc protrusion with mild to moderate facet arthropathy. No central c anal stenosis or definite neural foraminal narrowing. At L2-L3, there is moderate degenerative disc narrowing. There is central disc protrusion. Moderate t endinosis arthropathy contributes to moderate to severe thecal sac compression/spinal canal stenosis. There is mild bilateral neural foraminal narrowing. L3-L4, there is mild disc bulge with mild facet arthropathy. No central canal stenosis. There is gris re left neural foraminal narrowing, and mild to moderate right neural foraminal narrowing. At L4-L5, there is no significant disc bulge or herniation. There is [id number] facet arthropat hy. No central canal stenosis. There is moderate to advanced bilateral neural foraminal narrowing. At L5-S1, there is no disc bulge or herniation. There is mild facet arthropathy. There is moderate to advanced bilateral neural foraminal narrowing. Paravertebral soft tissues are unremarkable. Impression: Advanced degenerative spondylosis at L2-L3. Moderate degenerative spondylosis in the remainder of the lumbar spine, as above. Reviewed, dictated and finalized at [facility]. Impression: Advanced degenerative spondylosis at L2-L3. Moderate degenerative spondylosis in the remainder of the lumbar spine, as abov e.
== END 2023-07-24 07:00 | disposition home or self-care (01) ==
LOC: CHSIMG 07:02
PROVIDERS: PCP Family Medicine; Visit Provider Family Medicine
DX: M54.9 Dorsalgia, unspecified (principal); M51.26 Other intervertebral disc displacement, lumbar region; M43.06 Spondylolysis, lumbar region
CPT/HCPCS: 72146; 72148

== ENCOUNTER 2023-12-04 07:38 | Emergency (ER) | payer OTHER, SELFPAY ==
[2023-12-04] VITALS (15 sets, daily range): BP systolic 96–126; BP diastolic 65–90; PULSE 62–90; RESP 14–16; TEMP 36.6–36.9; O2SAT 96–100
--- NOTE | 2023-12-04 07:56 | ED.GENADULT ---
HPI - General Adult General Chief complaint: Nausea/Vomiting/Diarrhea Stated complaint: headache and nausea Time Seen by Provider: 12/04/23 07:47 History of Present Illness HPI narrative: 43-year-old female presents to the emergency department with a one-week history of generally feeling unwell, malaise, fatigue , and feeling unsteady on her feet. She also reports headache which she describes as a 6/10 throbbing pain behind both of her eyes. She has had this intermittently for the past week as well. She endorses nausea but no vomiting. Of note the patient presents from a local [place] [facility] facility. Her records indicate a history of bipolar, personality disorder and PTSD. her medication list includes Depakote, Lamictal, alprazolam, trazodone. she does also have an order for sumatriptan. The patient states that she received a dose of the sumatriptan this morning however that is not reflected on the copy of the MAR that was sent with her today. Remainder of ROS was negative for fever, chest pain, sob, abdominal pain, or changes in diet, bladder, or bowel habits. Related Data Home Medications Medication Instructions Recorded Confirmed alprazolam 0.25 mg tablet 0.25 mg PO BID 01/27/23 12/04/23 lamotrigine 100 mg tablet 100 mg PO BID 01/27/23 12/04/23 lidocaine 5 % topical patch 1 patch topical DAILY PRN Pain 01/27/23 12/04/23 lisinopril 20 mg tablet 20 mg PO DAILY 01/27/23 12/04/23 omeprazole 20 mg capsule,delayed 20 mg PO DAILY 01/27/23 12/04/23 release polysaccharide iron complex 150 mg 150 mg PO DAILY 01/27/23 12/04/23 iron capsule (iFerex 150) trazodone 50 mg tablet 75 mg PO HS 01/27/23 12/04/23 acetaminophen 500 mg tablet 500 mg PO QID PRN Pain 12/04/23 12/04/23 fluticasone propionate 50 2 spray intranasal DAILY PRN 12/04/23 12/04/23 mcg/actuation nasal Congestion spray,suspension polyethylene glycol 3350 17 1 g PO DAILY 12/04/23 12/04/23 gram/dose oral powder sumatriptan succinate 100 mg tablet 100 mg PO DAILY PRN headaches 12/04/23 12/04/23 Allergies Allergy/AdvReac Type Severity Reaction Status Date / Time No Known Allergies Allergy Verified 12/04/23 07:45 [facility] Past Medical History Medical History (Updated 12/04/23 @ 08:55 by Benitez Ocampo MD) Bipolar 1 disorder Personality disorder PTSD (post-traumatic stress disorder) Exam Narrative: GEN: Awake, alert. Speech slow, mild slurring at times otherwise well appearing, well nourished, nontoxic, NAD. HEENT: No rhinorrhea noted, mucous membranes moist. No scleral icterus or conjunctival injection. CV: Normal rate, regular rhythm, S1S2 no M/G/R. 2+ distal pulses all extremities. No peripheral edema noted. PULM: Non-labored respiration. Clear to auscultation bilaterally. No wheezes, rales, rhonchi. GI: Abdomen soft, non -tender to palpation. No rigidity, distention or guarding.? NEURO: No lateralizing or focal deficits noted. Moving all extremities well. Head, neck, back, chest, abdomen, pelvis, extremities all grossly atraumatic without any sign of injury or deformity. Course Vital Signs Vital signs: Vital Signs Temperature 36.9 C 12/04/23 07:38 Pulse Rate 90 12/04/23 07:38 Respiratory Rate 16 12/04/23 07:38 Blood Pressure 124/66 12/04/23 07:38 Pulse Oximetry 98 12/04/23 07:38 Oxygen Delivery Room Air 12/04/23 07:38 Temperature 36.9 C 12/04/23 07:38 Pulse Rate 90 12/04/23 07:38 Respiratory Rate 16 12/04/23 07:38 Blood Pressure 124/66 12/04/23 07:38 Pulse Oximetry 98 12/04/23 07:38 Oxygen Delivery Room Air 12/04/23 07:38 Medical Decision Making MDM Narrative Medical decision making narrative: Patient was placed in Room #:? 2 Independent Historian: EMS service External Source Review: medical records [place] [facility] [place] Differential diagnosis includes but not limited to:? viral gastritis, migraine, urinary tract infection, accidental medication overdose, over-sedation from rip
[2023-12-04] MEDS: SUMAtriptan SUCCINATE 25 MG TABLET 100 MG PO (08:01)
[2023-12-04] MEDS: ACETAMINOPHEN 500 MG TABLET 1000 MG PO (08:01)
[2023-12-04] MEDS: SODIUM CHLORIDE 0.9% IV 500 ML 999 ML IV CONT (08:03)
[2023-12-04 08:13] LABS: Add Urine Microscopic? YES; Appearance Urine Clear (Clear); Bilirubin Urine 2+ (Negative); Blood Urine 2+ (Negative); Color Urine Brown (Yellow); Glucose Urine UA Negative (Negative); Hematocrit 30.1 % (35.0-49.0); Hemoglobin 9.9 g/dL (12.0-15.0); Immature Platelet Fraction Pct 2.8 % (1.0-7.0); Ketones Urine 3+ (Negative); Leukocyte Esterase Ur 2+ (Negative); Mean Corpuscular HGB Conc 32.9 g/dL (32-36); Mean Corpuscular Hemoglobin 30.2 pg (27.0-31.0); Mean Corpuscular Volume 91.8 fL (78.0-102.0); Mean Platelet Volume 10.3 fl (9.2-11.8); Nitrate Urine Positive (Negative); Platelet Count Result 110 K/mm3 (150-420); Protein Urine 3+ (Negative); Red Blood Count 3.28 M/mm3 (4.20-5.40); Red Cell Distribution Width 12.8 % (11.6-14.4); Specific Grav Ur 1.025 (1.010-1.020); White Blood Count 4.8 K/mm3 (4.8-10.8)
[2023-12-04 08:19] LABS: Bacteria Urine 2+ /hpf; Squamous Epithelial Cell Urine Few /hpf (Few); WBC Urine >75 /hpf (0-3)
[2023-12-04 08:20] LABS: Pregnancy On Board Control Positive; Urine Pregnancy Test Negative
[2023-12-04 08:23] LABS: Amphetamine Screen Urine Negative (Negative); Barbiturate Screen Urine Negative (Negative); Benzodiazepines Screen Urine Positive (Negative); Cannabinoid Screen Urine Negative (Negative); Cocaine Screen Urine Negative (Negative); Methadone Screen Urine Negative (Negative); Opiate Screen Urine Negative (Negative); Phencyclidine Screen Urine Negative (Negative)
[2023-12-04 08:25] LABS: Alanine Aminotransferase 11 U/L (14-59); Albumin Level 2.4 g/dL (3.4-5.0); Alkaline Phosphatase 62 U/L (46-116); Anion Gap 7 mmol/L (4-12); Aspartate Amino Transferase 10 U/L (15-37); Bilirubin,Total 0.5 mg/dL (0.00-1.00); Blood Urea Nitrogen 7 mg/dL (7-18); Calcium 8.4 mg/dL (8.5-10.1); Carbon Dioxide 27 mmol/L (21-32); Chloride 96 mmol/L (98-108); Estimated CRCL calculation 89 ml/min; Estimated Glomerular Filt Rate > 60; Glucose 102 mg/dL (70-99); Osmolality Calculated 268 mOsm/kg (285-295); Potassium 3.5 mmol/L (3.5-5.1); Sodium 130 mmol/L (136-145)
[2023-12-04] MEDS: CEPHALEXIN 500 MG CAPSULE PO (09:18)
--- NOTE | 2023-12-06 17:49 | PC.NURSE ---
Addendum entered by Kimi Mooney RN 12/06/23 17:51: MISTAKEN ENTRY. FINAL URINE CULTURE RESULTS: ESCHERICHIA COLI. PER DR MONTE PT IS TO STOP TAKING CEPHALEXIN AND START ON MACROBID 100MG BID X 7 DAY, #14, NO REFILLS. CONTACTING [facility] TO NOTIFY OF MED CHANGE. Original Note: FINAL URINE CULTURE RESULTS: ESCHERICHIA COLI. PER DR MONTE AND C&S NO CHANGE IN [place] NEEDED.
--- NOTE | 2023-12-07 09:14 | PC.NURSE ---
DR BELL HAS ORDERED MACROBID 100 MG PO BID X 7 DAYS, SENT INTO [facility]. I SPOKE WITH HOPE AT [facility], SHE IS AWARE OF THE MEDICATION CHANGE. I WAS UNABLE TO GET THROUGH TO [facility] LAST PM, THEIR PHONE SYSTEM WAS DOWN. PT IS TO STOP TAKING THE CEPHALEXIN AND START THE MACROBID TODAY. HOPE VERBALIZED UNDERSTANDING.
== END 2023-12-04 09:24 | disposition home or self-care (01) ==
PROVIDERS: Emergency Provider Family Medicine; PCP Family Medicine
DX: N39.0 Urinary tract infection, site not specified (principal); Z79.899 Other long term (current) drug therapy
CPT/HCPCS: 36415; 80053; 80307; 81001; 81025; 85027; 85055; 87086; 87186; 96360; 99283; A9270; J7040

== ENCOUNTER 2024-01-06 10:41 | Outpatient (CLI) | payer OTHER, SELFPAY ==
[2024-01-06 10:58] LABS: Basophils Absolute Auto 0.05 K/mm3 (0.00-0.10); Basophils Percent Auto 1.2 % (0.0-1.0); Eosinophils Absolute Auto 0.08 K/mm3 (0.02-0.50); Eosinophils Percent Auto 1.9 % (1.0-6.0); Hematocrit 31.6 % (35.0-49.0); Hemoglobin 10.7 g/dL (12.0-15.0); Immature Granulocyte Absolute 0.01 K/mm3 (0.00-0.00); Immature Granulocyte Percent A 0.2 % (0.0-0.0); Lymphocytes Absolute Auto 1.19 K/mm3 (1.10-4.50); Mean Corpuscular HGB Conc 33.9 g/dL (32-36); Mean Corpuscular Hemoglobin 31.5 pg (27.0-31.0); Mean Corpuscular Volume 92.9 fL (78.0-102.0); Mean Platelet Volume 10.6 fl (9.2-11.8); Monocytes Percent Auto 9.4 % (2.0-11.0); Neutrophils Absolute Auto 2.52 K/mm3 (1.70-7.20); Neutrophils Percent Auto 59.3 % (50.0-70.0); Platelet Count Result 139 K/mm3 (150-420); Red Cell Distribution Width 13.2 % (11.6-14.4); White Blood Count 4.3 K/mm3 (4.8-10.8)
== END 2024-01-06 10:42 | disposition home or self-care (01) ==
LOC: CHSLAB 10:44
PROVIDERS: PCP Family Medicine; Visit Provider Family Medicine
DX: D64.9 Anemia, unspecified (principal)
CPT/HCPCS: 36415; 85025

== ENCOUNTER 2024-02-02 14:56 | Emergency (ER) | payer MEDICAID, SELFPAY ==
[2024-02-02] VITALS (8 sets, daily range): BP systolic 106–129; BP diastolic 75–88; PULSE 101; RESP 18; TEMP 38.1; O2SAT 96–100
--- NOTE | ~2024-02-02 | CT_ITS ---
EXAMINATION: CT brain wo con DATE: 02/02/2024 15:46 INDICATION: Altered mental status. Slurred speech. TECHNIQUE: Computed tomography (CT) of the head was performed without intravenous contrast. Sagittal and coronal reconstructions were performed. The mA was adjusted according to patient size. Iterative reconstruction technique was employed. The dose-length product was 983.67 mGy-cm. COMPARISON: None FINDINGS: There is motion artifact which mild to moderately limits evaluation caudal half of the brain. No acut e intracranial hemorrhage, acute infarction or abnormal extra axial fluid collection. Ventricles are normal and symmetric. No mass/mass effect. The orbits, paranasal sinuses and mastoid air cells are no rmal. IMPRESSION: 1. Normal appearing brain with no acute intracranial process. Evaluation mild to moderately limited i n the caudal half of the brain due to motion. Reviewed, dictated and finalized at location A. UNTING TEACHER IMPRESSION: 1. Normal appearing brain with no acute intracranial process. Evaluation mild t o moderately limited in the caudal half of the brain due to motion.
--- NOTE | 2024-02-02 15:03 | ED_ITS ---
HPI - Neuro Symptoms/Deficit General Chief Complaint: Nausea/Vomiting/Diarrhea Stated Complaint: slurred speech x 5 days Time Seen by Provider: 02/02/24 15:00 Source: patient Mode of arrival: ambulatory Limitations: no limitations History of Present Illness HPI Narrative: 43-year-old female with a history bipolar were noted PTSD presents to the ED with a 5 day history of -- slurred speech. no other focal neuro deficits noted. -- Nausea with multiple episodes of vomiting. No abdominal pain. No diarrhea. The patient was seen on 01/28/2024 for abdominal pain and gastroenteritis. Her workup was unremarkable. Onset (ago): day(s) ( Five days.) Timing confirmed by: caregiver Location: speech History of same: No Quality: other ( Slurred speech) Relieving factors: none Exacerbating factors: none On Anticoagulants: No Associated symptoms: denies other symptoms Treatments Prior to Arrival: none Related Data Home Medications ?Medication ?Instructions ?Recorded ?Confirmed ?Last Taken ?Type alprazolam 0.25 mg tablet 0.25 mg PO BID 01/27/23 12/04/23 01/27/23 History lamotrigine 100 mg tablet 100 mg PO BID 01/27/23 12/04/23 01/27/23 History lidocaine 5 % topical patch 1 patch topical DAILY PRN Pain 01/27/23 12/04/23 01/27/23 History lisinopril 20 mg tablet 20 mg PO DAILY 01/27/23 12/04/23 01/27/23 History omeprazole 20 mg capsule,delayed 20 mg PO DAILY 01/27/23 12/04/23 01/27/23 History release polysaccharide iron complex 150 mg 150 mg PO DAILY 01/27/23 12/04/23 01/27/23 History iron capsule (iFerex 150) trazodone 50 mg tablet 75 mg PO HS 01/27/23 12/04/23 01/26/23 History acetaminophen 500 mg tablet 500 mg PO QID PRN Pain 12/04/23 12/04/23 Unknown History fluticasone propionate 50 2 spray intranasal DAILY PRN 12/04/23 12/04/23 Unknown History mcg/actuation nasal Congestion spray,suspension polyethylene glycol 3350 17 1 g PO DAILY 12/04/23 12/04/23 Unknown History gram/dose oral powder sumatriptan succinate 100 mg tablet 100 mg PO DAILY PRN headaches 12/04/23 12/04/23 Unknown History Allergies Allergy/AdvReac Type Severity Reaction Status Date / Time No Known Allergies Allergy Verified 02/02/24 15:14 Review of Systems 2 Review of Systems: All systems reviewed & are unremarkable except as noted in HPI and below Constitutional: Constitutional: Reports as per HPI and Reports no additional constitutional complaints Eyes: Eyes: Reports as per HPI and Reports no additional eye complaints ENT: Reports system reviewed and no additional complaints, except as documented and Reports as per HPI Cardiovascular: Cardiovascular: Reports as per HPI and Reports no additional cardiovascular complaints Respiratory: Respiratory: Reports as per HPI and Reports no additional respiratory complaints Gastrointestinal: Gastrointestinal: Reports as per HPI, Reports no additional gastrointestinal complaints, Reports nausea and Reports vomiting Genitourinary: Genitourinary: Reports no additional female genitourinary complaints Musculoskeletal: Musculoskeletal: Reports no additional musculoskeletal complaints Integumentary/Breasts: Skin/Breast: Reports system reviewed and no additional complaints, except as docu Neurologic: Reports system reviewed and no additional complaints, except as documented Comments: she has slurred speech . No other focal neuro deficits Psychiatric: Psychiatric: Reports no additional psychiatric complaints Endocrine: Endocrine: Reports no additional endocrine complaints Hematologic/Lymphatic: Hematologic/Lymphatic: Reports no additional hematologic/lymphatic complaints Allergic/Immunologic: Allergic/Immunologic: Reports no additional allergic/immunologic complaints [facility] Past Medical History Medical History Personality disorder PTSD (post-traumatic stress disorder) Bipolar 1 disorder Exam 2 Narrative: vitals are stable Const: General: ill appearing Orientation/consciousness: patient oriented x3 Limitations: no limitations HENMT: Head: normal to inspection Ears: external ears normal F lyubov/Nose/Sinus: Normal external nose present Face and sinus: normal facial exam Mouth: Yes Normal oral and palatal mucosa present Eyes: Conjunctivae: conjunctivae normal Pupils: Equal, round and reactive pupils present EOM: EOMs intact bilaterally Direct Ophthalmoscopy: no photophobia Neck: Neck: normal visual inspection, no lymphadenopathy and no meningeal signs Chest: Chest palpation & inspection: normal inspection of the chest Resp: Effort & Inspection: normal respiratory effort Auscultation: clear to auscultation bilaterally Cardio: Rate: regular rate Rhythm: regular rhythm GI: GI Palp: Yes Soft to palpation Other: no tenderness/rigidity/rebound. : General: Yes no CVA tenderness Back/Spine/Pelvis: Back: no CVA tenderness Skin: General skin exam: normal color Rashes: no rashes Wounds: no wounds Neuro: General: patient oriented x3, moves all extremities, no meningeal signs and no focal motor deficits Cranial nerves: Yes Nystagmus not present S peech: normal speech Extrem: General: normal to inspection and no clubbing, cyanosis or edema Psych: Mental Status: mental status grossly normal Affect: Anxious affect present Attitude: cooperative Course Course Emergency Course: Altered mental status urinary tract infection anemia/ thrombocytopenia nausea and vomiting Vital Signs Vital signs: Vital Signs Temperature 38.1 C H 02/02/24 14:56 Pulse Rate 101 H 02/02/24 14:56 Respiratory Rate 18 02/02/24 14:56 Blood Pressure 117/76 02/02/24 14:56 Pulse Oximetry 100 02/02/24 14:56 Oxygen Delivery Room Air 02/02/24 14:56 Temperature 38.1 C H 02/02/24 14:56 Pulse Rate 101 H 02/02/24 14:56 Respiratory Rate 18 02/02/24 14:56 Blood Pressure 117/76 02/02/24 14:56 Pulse Oximetry 100 02/02/24 14:56 Oxygen Delivery Room Air 02/02/24 14:56 MDM - Neuro Symptoms/Deficit MDM Narrative Medical decision making narrative: altered mental status urinary tract infection anemia/thrombocytopenia nausea and vomiting Lab Data 02/02/24 15:28 02/02/24 15:28 Labs: Lab Results 02/02/24 02/02/24 02/02/24 Range/Units 15:16 15:27 15:28 WBC 6.4 (4.8-10.8) K/mm3 RBC 3.35 L (4.20-5.40) M/mm3 Hgb 10.3 L (12.0-15.0) g/dL Hct 29.8 L (35.0-49.0) % MCV 89.0 (78.0-102.0) fL MCH 30.7 (27.0-31.0) pg MCHC 34.6 (32-36) g/dL RDW 13.1 (11.6-14.4) % Plt Count 122 L (150-420) K/mm3 MPV 9.5 (9.2-11.8) fl Immature Gran % (Auto) 0.5 H (0.0-0.0) % Neut % (Auto) 78.4 H (50.0-70.0) % Lymph % (Auto) 7.1 L (18.0-42.0) % [place] % (Auto) 13.7 H (2.0-11.0) % Eos % (Auto) 0.0 L (1.0-6.0) % Baso % (Auto) 0.3 (0.0-1.0) % Lymph # (Auto) 0.45 L (1.10-4.50) K/mm3 [place] # (Auto) 0.87 (0.10-0.90) K/mm3 Eos # (Auto) 0.00 L (0.02-0.50) K/mm3 Baso # (Auto) 0.02 (0.00-0.10) K/mm3 Abs Immat Gran (auto) 0.03 H (0.00-0.00) K/mm3 Absolute Neuts (auto) 4.99 (1.70-7.20) K/mm3 Absolute Nucleated RBC 0.00 (0.00-0.00) K/mm3 Nucleated RBC % 0.0 (0-0.0) % Sodium 132 L (136-145) mmol/L Potassium 3.7 (3.5-5.1) mmol/L Chloride 96 L (98-108) mmol/L Carbon Dioxide 28 (21-32) mmol/L Anion Gap 8 (4-12) mmol/L BUN 12 (7-18) mg/dL Creatinine 0.91 (0.55-1.02) mg/dL Estim Creat Clear Calc 71 ml/min Estimated GFR > 60 (59 - ) Glucose 105 H (70-99) mg/dL POC Capillary Glucose 102 (65-105) mg/dl Calculated Osmolality 273 L (285-295) mOsm/kg Lactic Acid 0.8 (0.4-2.0) mmol/L Calcium 9.0 (8.5-10.1) mg/dL Total Bilirubin 0.5 (0.00-1.00) mg/dL AST 16 (15-37) U/L ALT 18 (14-59) U/L Alkaline Phosphatase 63 (46-116) U/L Total Creatine Kinase 59 (26-192) U/L Troponin I < 4.0 (0.00-60.4) ng/L Total Protein 6.2 L (6.4-8.2) g/dL Albumin 2.5 L (3.4-5.0) g/dL Lipase 12 L (16-77) U/L Urine Color Dark brown (Yellow) Urine Appearance Clear (Clear) Urine pH 6.0 (5.0-8.0) Ur Specific [place] 1.015 (1.010-1.020) Urine Protein 2+ H (Negative) Urine Glucose (UA) Negative (Negative) Urine Ketones 2+ H (Negative) Ur Blood (Man) 3+ H (Negative) Urine Nitrate Positive H (Negative) Urine Bilirubin Negative (Negative) Urine Urobilinogen >=8.0 (0.2-1.0) mg/dL Leukocyte Esterase Rfl 2+ H (Negative) ZACH/UL Urine RBC 6-10 H (0-2) /hpf Urine WBC >75 H (0-3) /hpf Ur Squamous Epith Cells Rare (Few) /hpf Urine Bacteria 4+ H (None) /hpf Urine Test Negative Urine Opiates Screen Negative (Negative) Urine Methadone Screen Negative (Negative) Ur Barbiturates Screen Negative (Negative) Ur Phencyclidine Scrn Negative (Negative) Ur Amphetamine Screen Negative (Negative) U Benzodiazepines Scrn Negative (Negative) Urine Cocaine Screen Negative (Negative) U Cannabinoids Screen Negative (Negative) Influenza A (RT-PCR) Negative (Negative) Influenza B (RT-PCR) Negative (Negative) RSV (RT-PCR) Negative (Negative) SARS-CoV-2 RNA (RT-PCR) Negative (Negative) ECG Data EKG #1: ECG completion date: 02/02/24 ECG completion time: 15:22 Interpretation: normal sinus rhythm. Normal axis. No ST wave elevation. T inversion in anterior leads. Discharge Plan Discharge Clinical Impression: Thrombocytopenia Altered mental status Qualifiers: Altered mental status type: disorientation Qualified Code(s): R41.0 - Disorientation, unspecified Urinary tract infection Qualifiers: Urinary tract infection type: site unspecified Hematuria presence: without hematuria Qualified Code(s): N39.0 - Urinary tract infection, site not specified Anemia Qualifiers: Anemia type: unspecified type Qualified Code(s): D64.9 - Anemia, unspecified Nausea & vomiting Qualifiers: Vomiting type: unspecified Qualified Code(s): R11.2 - Nausea with vomiting, unspecified Patient Disposition: Home, Self-Care Condition: Stable Instructions: Antibiotic Form, Urinary Tract Infection in Women (ED), Acute Nausea and Vomiting (DC) Patient Language: Malian Prescriptions: New ciprofloxacin HCl [Cipro] 250 mg tablet 250 mg PO Q12H Qty: 10 0RF ondansetron HCl 4 mg tablet 4 mg PO Q8H PRN (Reason: nausea and vomiting) 4 Days Qty: 10 0RF No Action trazodone 50 mg tablet 75 mg PO HS polysaccharide iron complex [iFerex 150] 150 mg iron capsule 150 mg PO DAILY lisinopril 20 mg tablet 20 mg PO DAILY alprazolam 0.25 mg tablet 0.25 mg PO BID lidocaine 5 % adhesive patch,medicated 1 patch topical DAILY PRN (Reason: Pain) omeprazole 20 mg capsule,delayed release(DR/EC) 20 mg PO DAILY lamotrigine 100 mg tablet 100 mg PO BID ondansetron HCl 4 mg tablet 4 mg PO Q8H PRN (Reason: nausea and vomiting) 3 Days Qty: 10 0RF acetaminophen 500 mg tablet 500 mg PO QID PRN (Reason: Pain) polyethylene glycol 3350 17 gram/dose powder 1 g PO DAILY fluticasone propionate 50 mcg/actuation spray,suspension 2 spray INTRANASAL DAILY PRN (Reason: Congestion) sumatriptan succinate 100 mg tablet 100 mg PO DAILY PRN (Reason: headaches) cephalexin 500 mg capsule 500 mg PO Q12H 7 Days Qty: 14 0RF nitrofurantoin monohyd/m-cryst [Macrobid] 100 mg capsule 100 mg PO Q12H 5 Days Qty: 10 0RF Rx Instructions: must administer with a meal/food Follow-up/Referrals: Rojas Smiley MD [Primary Care Provider] - Time of Disposition: 16:28 Quality Stroke Date of last known normal: 01/29/24 Stroke Scale Stroke Scale 1: Stroke scale date:: 02/02/24 Stroke scale time:: 15:10 1a Level of consciousness: alert-0 1b Level of consciousness questions: answers both correctly-0 1c Level of consciousness commands: obeys both correctly-0 2 Best gaze: normal-0 3 Visual: no visual loss-0 4 Facial palsy: normal-0 5a Motor: left arm: no drift-0 5b Motor: right arm: no drift-0 6a Motor: left leg: no drift-0 6b Motor: right leg: no drift-0 7 Limb ataxia: absent-0 8 Sensory: normal-0 9 Best language: no aphasia-0 10 Dysarthria: slurs some words-1 11 Extinction and inattention: no abnormality-0 Level:: 1
--- NOTE | 2024-02-02 15:16 | ECG_ITS ---
Test Date: 2024-02-02 15:22:14 Measurements Intervals [place] Rate: 98 P: 33 CA: 122 QRS: 46 QRSD: 84 T: 2 QT: 303 QTc: 388 Interpretive Statements SINUS RHYTHM NONSPECIFIC T-WAVE ABNORMALITY No previous ECG available for comparison Electronically Signed On 02-03-2024 15:49:16 AGENT by Hunter Rush M.D.
[2024-02-02] MEDS: PROCHLORPERAZINE EDISYLATE 10 MG/2 ML VIAL IV PUSH (15:25)
[2024-02-02] MEDS: LACTATED RINGERS 1,000 ML 999 ML IV CONT (15:26)
[2024-02-02 15:27] LABS: Appearance Urine Clear (Clear); Bilirubin Urine Negative (Negative); Blood Urine 3+ (Negative); Glucose Urine UA Negative (Negative); Ketones Urine 2+ (Negative); Leukocyte Esterase Ur 2+ LEU/UL (Negative); Nitrate Urine Positive (Negative); Protein Urine 2+ (Negative); Specific Grav Ur 1.015 (1.010-1.020); Urobilinogen Urine >=8.0 mg/dL (0.2-1.0)
[2024-02-02 15:29] LABS: Glucose Point of Care 102 mg/dl (65-105)
[2024-02-02 15:33] LABS: Amphetamine Screen Urine Negative (Negative); Barbiturate Screen Urine Negative (Negative); Benzodiazepines Screen Urine Negative (Negative); Cannabinoid Screen Urine Negative (Negative); Cocaine Screen Urine Negative (Negative); Methadone Screen Urine Negative (Negative); Opiate Screen Urine Negative (Negative); Phencyclidine Screen Urine Negative (Negative)
[2024-02-02 15:34] LABS: Basophils Absolute Auto 0.02 K/mm3 (0.00-0.10); Basophils Percent Auto 0.3 % (0.0-1.0); Hematocrit 29.8 % (35.0-49.0); Hemoglobin 10.3 g/dL (12.0-15.0); Immature Granulocyte Absolute 0.03 K/mm3 (0.00-0.00); Immature Granulocyte Percent A 0.5 % (0.0-0.0); Lymphocytes Absolute Auto 0.45 K/mm3 (1.10-4.50); Lymphocytes Percent Auto 7.1 % (18.0-42.0); Mean Corpuscular HGB Conc 34.6 g/dL (32-36); Mean Corpuscular Hemoglobin 30.7 pg (27.0-31.0); Mean Platelet Volume 9.5 fl (9.2-11.8); Monocytes Absolute Auto 0.87 K/mm3 (0.10-0.90); Monocytes Percent Auto 13.7 % (2.0-11.0); Neutrophils Absolute Auto 4.99 K/mm3 (1.70-7.20); Neutrophils Percent Auto 78.4 % (50.0-70.0); Platelet Count Result 122 K/mm3 (150-420); Red Blood Count 3.35 M/mm3 (4.20-5.40); Red Cell Distribution Width 13.1 % (11.6-14.4); White Blood Count 6.4 K/mm3 (4.8-10.8)
--- NOTE | 2024-02-02 15:34 | PC.NURSE ---
pt to ct at this time. pt was assisted with bed gambino upon arrival.
[2024-02-02 15:37] LABS: Pregnancy On Board Control Positive; Urine Pregnancy Test Negative
[2024-02-02 15:54] LABS: Add Urine Microscopic? YES; Bacteria Urine 4+ /hpf; Color Urine Dark Brown (Yellow); Squamous Epithelial Cell Urine Rare /hpf (Few); WBC Urine >75 /hpf (0-3)
[2024-02-02 15:57] LABS: Alanine Aminotransferase 18 U/L (14-59); Albumin Level 2.5 g/dL (3.4-5.0); Alkaline Phosphatase 63 U/L (46-116); Anion Gap 8 mmol/L (4-12); Aspartate Amino Transferase 16 U/L (15-37); Bilirubin,Total 0.5 mg/dL (0.00-1.00); Blood Urea Nitrogen 12 mg/dL (7-18); Carbon Dioxide 28 mmol/L (21-32); Chloride 96 mmol/L (98-108); Creatine Kinase 59 U/L (26-192); Estimated CRCL calculation 71 ml/min; Estimated Glomerular Filt Rate > 60; Glucose 105 mg/dL (70-99); Lipase 12 U/L (16-77); Osmolality Calculated 273 mOsm/kg (285-295); Potassium 3.7 mmol/L (3.5-5.1); Sodium 132 mmol/L (136-145); Total Protein 6.2 g/dL (6.4-8.2)
[2024-02-02 15:59] LABS: Troponin I < 4.0 ng/L (0.00-60.4)
[2024-02-02 16:19] LABS: SARS-CoV-2 RNA PCR Negative (Negative)
[2024-02-02 16:20] LABS: Influenza A QL RT-PCR Negative (Negative); Influenza B QL RT-PCR Negative (Negative); RSV RNA, RT-PCR Negative (Negative)
[2024-02-02 16:23] LABS: Lactic Acid Reflex 0.8 mmol/L (0.4-2.0)
[2024-02-02] MEDS: CIPROFLOXACIN 250 MG TABLET PO (16:35)
--- NOTE | 2024-02-02 16:43 | PC.NURSE ---
MIROSLAVA NOTIFIED AT [facility] THAT PT IS TO BE DC BACK AND NEEDS TRANSPORT. DC INSTRUCTIONS PROVIDED TO HER AT THIS TIME. PT IS AWARE OF PLAN OF CARE. PT AMBULATED TO RR WITH MINIMAL ASSISTANCE. PT IS SITTING UP ON STRETCHER TALKING MORE CLEARLY AT THIS TIME. PT REPORTS SHE IS FEELING A LITTLE BETTER. PT IS AWAITING TRANSPORT.
--- NOTE | 2024-02-02 16:55 | PC.NURSE ---
PT DRESSES HERSELF WITHOUT DIFFICULTY, A&OX4, MIRELLA, SPEECH IS CLEAR.
--- NOTE | 2024-02-04 15:02 | PC.NURSE ---
urine culture reviewed, preliminary. gram negative bacilli
--- NOTE | 2024-02-05 13:13 | PC.NURSE ---
FINAL URINE CULTURE REPORT; POSITIVE ESCHERICHIA COLI, PATIENT DISCHARGED ON CIPRO, NO FURTHER ACTION OR CHANGE IN TREATMENT PER DR. CABRAL.
== END 2024-02-02 17:10 | disposition home or self-care (01) ==
PROVIDERS: Emergency Provider Internal Medicine Critical Care Medicine; PCP Family Medicine
DX: N39.0 Urinary tract infection, site not specified (principal); R41.0 Disorientation, unspecified; D69.6 Thrombocytopenia, unspecified; D64.9 Anemia, unspecified; R11.2 Nausea with vomiting, unspecified; Z20.822 Contact with and (suspected) exposure to COVID-19
CPT/HCPCS: 36415; 70450; 80053; 80307; 81001; 81025; 82550; 82948; 83605; 83690; 84484; 85025; 87086; 87186; 87637; 93005; 96361; 96374; 99284; A9270; J0780; J7120